=== PATIENT | female | born 2000 | race Caucasian/White ===

== ENCOUNTER 2021-02-25 10:22 | Inpatient (IN) ==
--- NOTE | 2021-02-25 10:54 | Emergency Department Note ---
Impression & Plan Suicidal ideations, Mood disorder, Marijuana use ED Provider Note NAME: ALEX GARY AGE: 20 SEX: F : 2000 ARRIVES VIA: Walk-In INFORMANT: Patient ED PROVIDER(S): Roosevelt Goss DO CHIEF COMPLAINT: Suicidal ideations with a plan to overdose or crash car HPI: Patient is a 20-year-old female who presents the ER for suicidal ideations. Been present for over a week. She has a plan to overdose or crash her car. She has been trying to get in with intensive outpatient therapy. She has a therapist and a psychiatrist. Been adjusting her medications. She is currently decreasing her Cymbalta and going up on her Prozac. Denies any headache or change in vision. No chest pain or shortness of breath. She admits to intrusive thoughts that she is worthless and needs to . No visual hallucinations. No other exacerbating or remitting factors. ROS: See above HPI for pertinent positives & negatives. A total of 10 systems reviewed and were otherwise negative. PAST MEDICAL HISTORY:See Below PAST SURGICAL HISTORY:See Below FAMILY HISTORY:See Below SOCIAL HISTORY:See Below HOME MEDICATIONS:See Below ALLERGIES:See Below VITALS:See Below PHYSICAL EXAMINATION: GENERAL: Sitting up in bed, alert, well appearing, well nourished, no distress, non-toxic EYE EXAM: normal conjunctiva. OROPHARYNX: no exudate, no erythema, lips, buccal mucosa, and tongue normal and mucous membranes are moist NECK: supple, no nuchal rigidity, no adenopathy, non-tender LUNGS: Clear to auscultation. Normal chest wall mechanics HEART: no murmurs, S1 normal and S2 normal ABDOMEN: abdomen soft, non-tender, normo-active bowel sounds, no masses, no rebound or guarding. UPPER EXTREMITIES: upper extremities are grossly normal. LOWER EXTREMITIES: No pitting edema. NEURO EXAM: Normal sensorium, cranial nerves II-XII grossly intact, normal speech, no gross weakness of arms, no gross weakness of legs. PSYCH: Admits to suicidal ideations with plan to overdose or crash car MEDICAL DECISION MAKING: Patient is a 20-year-old female who presents ER with plan to crash her car or overdose. She has no other complaints at this time.IV was established blood work obtained. Labs show no significant leukocytosis or anemia. BMP on LFTs bilirubin and TSH was unremarkable. UA was contaminated with multiple epithelial cells. was negative. Tox was positive for marijuana and ecstasy. Covid was negative. Patient was admitted to 3 [address]. for further work-up. Observation Status: Indication: Mood disorder/medical stability Patient with a family history of cancer, was seen first at 1040 hrs and was necessary in order to determine medical stability and avoid unnecessary admission. Upon reevaluation, 4 hours of observation revealed that the patient should be placed in a psychiatric unit. Disposition date and time 02/25/2021 at 2:35 PM. Triage Nursing notes reviewed. Limited review of prior medical records performed Vital Signs: reviewed and remarkable for tachy Differential diagnosis: Mood disorder, infection, hypoglycemia, electrolyte abnormalities, cardiac sources, intracerebral event, toxicologic, trauma, neurologic, as well as other pathologies. ER treatment provided: See below Diagnostics interpreted by me: ECG: none Laboratory studies: As stated above and show below. Imaging studies: See below Consultation(s): none Procedures: none Critical Care: None Past Med/Surg History Medical History (Updated 02/25/21 @ 14:28 by Roosevelt Goss DO) Anxiety no meds GERD (gastroesophageal reflux disease) Surgical History History of wisdom tooth extraction Family History Grandfather (Paternal) Family hx of colon cancer Grandfather (Maternal) Family history of esophageal cancer Other Colorectal cancer No family history of adverse response to anesthesia Social History Smoking Status: Never smoker Second Hand Exposure: No; Hx Alcohol Use: No Hx Substance Use: No Preferred Language: Upper Sorbian Communication Ability: Effective 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 Beliefs That Will Affect Care: None Current Living Situation: Alone Feels Safe at Home: Yes Assistive Devices: None Allergies Allergies Allergy/AdvReac Type Severity Reaction Status Date / Time gluten Allergy Abdominal Verified 02/25/21 12:07 Pain Home Meds Home Medications Medication Instructions Recorded Confirmed esomeprazole magnesium 40 mg 40 mg PO QAM PRN 05/14/20 02/25/21 capsule,delayed release fexofenadine [Kenna Allergy] 180 mg PO HS 05/31/20 02/25/21 norethindrone ac-eth estradiol 1 tab PO HS 05/31/20 02/25/21 [Junel .04/28 ()] duloxetine [Cymbalta] 30 mg PO DAILY 02/25/21 02/25/21 fluoxetine [Prozac] 10 mg PO DAILY 02/25/21 02/25/21 Results & Data (ED) Vital Signs Vital Signs - 24 hr 02/25/21 10:29 Temperature 36.6 C Temperature Source Temporal Artery Scan Pulse Rate 101 H Respiratory Rate 18 Respiratory Effort / Characteristics Non-Labored Respiratory Depth Normal Respiratory Pattern Regular Blood Pressure 126/88 Blood Pressure Mean 100 Blood Pressure Position Sitting Pulse Oximetry 96 Oxygen Delivery Method Room Air Sepsis Recent Fever Within 48 Hours No Sepsis New/Unexplained Change in Mental Status No Sepsis Action Taken by Nursing No Action Required Laboratory Data Result diagrams: 02/25/21 11:00 02/25/21 11:00 Lab Results 02/25/21 02/25/21 02/25/21 Range/Units 10:51 10:51 11:00 WBC 8.48 (4.8-10.8) K/uL RBC 4.73 (4.2-5.4) M/uL Hgb 13.7 (12.0-16.0) g/dL Hct 40.5 (37-47) % MCV 85.6 (80-100) fL MCH 29.0 (25-34) pg MCHC 33.8 (32-36) g/dL RDW Std Deviation 41.3 (36.4-46.3) fL RDW Coeff of Lorenza 13.1 (11.5-14.5) % Plt Count 391 (130-400) K/uL MPV 9.0 (7.4-10.4) fL Immature Gran % (Auto) 0.2 % Neut % (Auto) 64.2 % Lymph % (Auto) 27.7 % Villalba % (Auto) 6.4 % Eos % (Auto) 1.3 % Baso % (Auto) 0.2 % Neut # (Auto) 5.44 (1.4-6.5) K/uL Lymph # (Auto) 2.35 (1.2-3.4) K/uL Villalba # (Auto) 0.54 (0.11-0.59) K/uL Eos # (Auto) 0.11 (0-0.5) K/uL Baso # (Auto) 0.02 (0-0.2) K/uL Immature Gran # (Auto) 0.02 (0.00-0.02) K/uL Sodium (136-145) mmol/L Potassium (3.5-5.1) mmol/L Chloride (98-107) mmol/L Carbon Dioxide (21-32) mmol/L Anion Gap (3-11) BUN (7-18) mg/dl Creatinine (0.6-1.2) mg/dl Est Cr Clr Drug Dosing ml/min Est GFR ( Amer) Est GFR (Non-Af Amer) BUN/Creatinine Ratio (10-20) Glucose (70-99) mg/dl Calcium (8.5-10.1) mg/dl Total Bilirubin (0.2-1) mg/dl AST (15-37) U/L ALT (12-78) U/L Alkaline Phosphatase (45-117) U/L Total Protein (6.4-8.2) gm/dl Albumin (3.4-5.0) gm/dl Globulin (2.5-4.0) gm/dl Albumin/Globulin Ratio (0.9-2) TSH (0.300-4.500) uIu/ml Urine Color Yellow Urine Appearance Clear (Clear) Urine pH 6.0 (4.5-7.5) Ur Specific [place] 1.029 (1.000-1.030) Urine Protein Trace H (Negative) Urine Glucose (UA) Negative (Negative) Urine Ketones Negative (Negative) Urine Blood 2+ H (Negative) Urine Nitrite Negative (Negative) Urine Bilirubin Negative (Negative) Urine Urobilinogen Negative (Negative) Ur Leukocyte Esterase 1+ H (Negative) Urine WBC (Auto) 10-30 H (0-5) /hpf Urine RBC (Auto) 10-30 H (0-4) /hpf U Hyaline Cast (Auto) 5-10 H (0-5) /lpf U Epithel Cells (Auto) >30 H (0-5) /lpf Urine Bacteria (Auto) 2+ H (Negative) POC Ur Test (NEG) Salicylates (2.8-20) mg/dl Urine Opiates Screen Neg (Neg) Ur Methadone, Qual Neg (Neg) Acetaminophen (10-30) ug/ml Urine Barbiturates Neg (Neg) Ur Phencyclidine (PCP) Neg (Neg) U Amphetamin/Meth Scrn Neg (Neg) MDMA (Ecstasy) Screen Pos H (Neg) U Benzodiazepines Scrn Neg (Neg) Ur Cocaine Metabolite Neg (Neg) U Marijuana (THC) Screen Pos H (Neg) Ethyl Alcohol mg/dL (0-3) mg/dl COVID-19 Eval Order SARS-CoV-2 (PCR) (Negative) Influenza Type A (PCR) (Neg) Influenza Type B (PCR) (Neg) RSV (RT-PCR) (Neg) 02/25/21 02/25/21 02/25/21 Range/Units 11:00 11:00 11:00 WBC (4.8-10.8) K/uL RBC (4.2-5.4) M/uL Hgb (12.0-16.0) g/dL Hct (37-47) % MCV (80-100) fL MCH (25-34) pg MCHC (32-36) g/dL RDW Std Deviation (36.4-46.3) fL RDW Coeff of Lorenza (11.5-14.5) % Plt Count (130-400) K/uL MPV (7.4-10.4) fL Immature Gran % (Auto) % Neut % (Auto) % Lymph % (Auto) % Villalba % (Auto) % Eos % (Auto) % Baso % (Auto) % Neut # (Auto) (1.4-6.5) K/uL Lymph # (Auto) (1.2-3.4) K/uL Villalba # (Auto) (0.11-0.59) K/uL Eos # (Auto) (0-0.5) K/uL Baso # (Auto) (0-0.2) K/uL Immature Gran # (Auto) (0.00-0.02) K/uL Sodium 137 (136-145) mmol/L Potassium 3.6 (3.5-5.1) mmol/L Chloride 107 (98-107) mmol/L Carbon Dioxide 25 (21-32) mmol/L Anion Gap 5.0 (3-11) BUN 12 (7-18) mg/dl Creatinine 0.80 (0.6-1.2) mg/dl Est Cr Clr Drug Dosing 117.3 ml/min Est GFR ( Amer) 122.2 Est GFR (Non-Af Amer) 105.4 BUN/Creatinine Ratio 15.6 (10-20) Glucose 91 (70-99) mg/dl Calcium 8.6 (8.5-10.1) mg/dl Total Bilirubin 0.3 (0.2-1) mg/dl AST 15 (15-37) U/L ALT 23 (12-78) U/L Alkaline Phosphatase 71 (45-117) U/L Total Protein 7.6 (6.4-8.2) gm/dl Albumin 3.9 (3.4-5.0) gm/dl Globulin 3.7 (2.5-4.0) gm/dl Albumin/Globulin Ratio 1.1 (0.9-2) TSH 2.850 (0.300-4.500) uIu/ml Urine Color Urine Appearance (Clear) Urine pH (4.5-7.5) Ur Specific [place] (1.000-1.030) Urine Protein (Negative) Urine Glucose (UA) (Negative) Urine Ketones (Negative) Urine Blood (Negative) Urine Nitrite (Negative) Urine Bilirubin (Negative) Urine Urobilinogen (Negative) Ur Leukocyte Esterase (Negative) Urine WBC (Auto) (0-5) /hpf Urine RBC (Auto) (0-4) /hpf U Hyaline Cast (Auto) (0-5) /lpf U Epithel Cells (Auto) (0-5) /lpf Urine Bacteria (Auto) (Negative) POC Ur Test (NEG) Salicylates < 1.7 L (2.8-20) mg/dl Urine Opiates Screen (Neg) Ur Methadone, Qual (Neg) Acetaminophen < 2 L (10-30) ug/ml Urine Barbiturates (Neg) Ur Phencyclidine (PCP) (Neg) U Amphetamin/Meth Scrn (Neg) MDMA (Ecstasy) Screen (Neg) U Benzodiazepines Scrn (Neg) Ur Cocaine Metabolite (Neg) U Marijuana (THC) Screen (Neg) Ethyl Alcohol mg/dL < 3.0 (0-3) mg/dl COVID-19 Eval Order SARS-CoV-2 (PCR) (Negative) Influenza Type A (PCR) (Neg) Influenza Type B (PCR) (Neg) RSV (RT-PCR) (Neg) 02/25/21 02/25/21 02/25/21 Range/Units 11:14 11:14 Unknown WBC (4.8-10.8) K/uL RBC (4.2-5.4) M/uL Hgb (12.0-16.0) g/dL Hct (37-47) % MCV (80-100) fL MCH (25-34) pg MCHC (32-36) g/dL RDW Std Deviation (36.4-46.3) fL RDW Coeff of Lorenza (11.5-14.5) % Plt Count (130-400) K/uL MPV (7.4-10.4) fL Immature Gran % (Auto) % Neut % (Auto) % Lymph % (Auto) % Villalba % (Auto) % Eos % (Auto) % Baso % (Auto) % Neut # (Auto) (1.4-6.5) K/uL Lymph # (Auto) (1.2-3.4) K/uL Villalba # (Auto) (0.11-0.59) K/uL Eos # (Auto) (0-0.5) K/uL Baso # (Auto) (0-0.2) K/uL Immature Gran # (Auto) (0.00-0.02) K/uL Sodium (136-145) mmol/L Potassium (3.5-5.1) mmol/L Chloride (98-107) mmol/L Carbon Dioxide (21-32) mmol/L Anion Gap (3-11) BUN (7-18) mg/dl Creatinine (0.6-1.2) mg/dl Est Cr Clr Drug Dosing ml/min Est GFR ( Amer) Est GFR (Non-Af Amer) BUN/Creatinine Ratio (10-20) Glucose (70-99) mg/dl Calcium (8.5-10.1) mg/dl Total Bilirubin (0.2-1) mg/dl AST (15-37) U/L ALT (12-78) U/L Alkaline Phosphatase (45-117) U/L Total Protein (6.4-8.2) gm/dl Albumin (3.4-5.0) gm/dl Globulin (2.5-4.0) gm/dl Albumin/Globulin Ratio (0.9-2) TSH (0.300-4.500) uIu/ml Urine Color Urine Appearance (Clear) Urine pH (4.5-7.5) Ur Specific [place] (1.000-1.030) Urine Protein (Negative) Urine Glucose (UA) (Negative) Urine Ketones (Negative) Urine Blood (Negative) Urine Nitrite (Negative) Urine Bilirubin (Negative) Urine Urobilinogen (Negative) Ur Leukocyte Esterase (Negative) Urine WBC (Auto) (0-5) /hpf Urine RBC (Auto) (0-4) /hpf U Hyaline Cast (Auto) (0-5) /lpf U Epithel Cells (Auto) (0-5) /lpf Urine Bacteria (Auto) (Negative) POC Ur Test NEG (NEG) Salicylates (2.8-20) mg/dl Urine Opiates Screen (Neg) Ur Methadone, Qual (Neg) Acetaminophen (10-30) ug/ml Urine Barbiturates (Neg) Ur Phencyclidine (PCP) (Neg) U Amphetamin/Meth Scrn (Neg) MDMA (Ecstasy) Screen (Neg) U Benzodiazepines Scrn (Neg) Ur Cocaine Metabolite (Neg) U Marijuana (THC) Screen (Neg) Ethyl Alcohol mg/dL (0-3) mg/dl COVID-19 Eval Order CovFluRsv at [facility] SARS-CoV-2 (PCR) NEGATIVE (Negative) Influenza Type A (PCR) Negative (Neg) Influenza Type B (PCR) Negative (Neg) RSV (RT-PCR) Negative (Neg) Discharge Plan Visit Data Chief Complaint: Mental Health Evaluation Stated Complaint: MENTAL HEALTH EVAL ED Provider: Roosevelt Goss Discharge Problem: Suicidal ideations, Mood disorder, Marijuana use Forms Stand Alone Forms: My [facility], Suicide Prevention Resources Prescriptions Prescriptions: No Action esomeprazole magnesium [Nexium] 40 mg capsule,delayed release(DR/EC) 40 mg PO QAM PRN (Reason: Allergy Symptoms) RF: 0 norethindrone ac-eth estradiol [ (21)] 1.5-30 mg-mcg Tablet 1 tab PO HS RF: 0 fexofenadine [Kenna Allergy] 180 mg Tablet 180 mg PO HS RF: 0 fluoxetine [Prozac] 10 mg Capsule 10 mg PO DAILY RF: 0 duloxetine [Cymbalta] 30 mg Capsule,Delayed Release(Dr/Ec) 30 mg PO DAILY RF: 0
[2021-02-25 11:08] LABS: Appearance Urine Clear (Clear); Bacteria Urine Automated 2+ (Negative); Bilirubin Urine Negative (Negative); Blood Urine 2+ (Negative); Color Urine Yellow; Epithelial Cell Urine Auto >30 /lpf (0-5); Glucose Urine UA Negative (Negative); Ketones Urine Negative (Negative); Leukocyte Esterase Urine 1+ (Negative); Nitrite Urine Negative (Negative); Protein Urine Trace (Negative); Specific Gravity Urine 1.029 (1.000-1.030); Urobilinogen Urine Negative (Negative)
[2021-02-25 11:29] LABS: Basophils # (auto) 0.02 K/uL (0-0.2); Basophils % (auto) 0.2 %; Eosinophils # (auto) 0.11 K/uL (0-0.5); Eosinophils % (auto) 1.3 %; Hematocrit (blood only) 40.5 % (37-47); Hemoglobin 13.7 g/dL (12.0-16.0); Immature Granulocytes # (auto) 0.02 K/uL (0.00-0.02); Immature Granulocytes % (auto) 0.2 %; Lymphocytes # (auto) 2.35 K/uL (1.2-3.4); Lymphocytes % (auto) 27.7 %; Mean Corpuscular Hgb Conc 33.8 g/dL (32-36); Mean Corpuscular Volume 85.6 fL (80-100); Monocytes # (auto) 0.54 K/uL (0.11-0.59); Monocytes % (auto) 6.4 %; Neutrophils # (auto) 5.44 K/uL (1.4-6.5); Neutrophils % (auto) 64.2 %; Platelet Count 391 K/uL (130-400); RDW Coefficient of Variation 13.1 % (11.5-14.5); RDW Standard Deviation 41.3 fL (36.4-46.3); Red Blood Count 4.73 M/uL (4.2-5.4); White Blood Count 8.48 K/uL (4.8-10.8)
[2021-02-25 11:42] LABS: Amphetamines+Metham, Urine Neg (Neg); Barbiturates, Urine Neg (Neg); Benzodiazepine, Urine Neg (Neg); Cocaine, Urine Neg (Neg); MDMA (Ecstacy), Urine Pos (Neg); Methadone, Urine Neg (Neg); Opiate, Urine Neg (Neg); Phencyclidine, Urine Neg (Neg)
[2021-02-25 11:51] LABS: Albumin Level 3.9 gm/dl (3.4-5.0); BUN Creatinine Ratio 15.6 (10-20); Calcium 8.6 mg/dl (8.5-10.1); Creatinine Clr Calc Pharmacy 117.3 ml/min; Est GFR (African American) 122.2; Est GFR (Non-African American) 105.4; Potassium 3.6 mmol/L (3.5-5.1)
[2021-02-25 11:56] LABS: Acetaminophen < 2 ug/ml (10-30)
[2021-02-25 11:57] LABS: Salicylate < 1.7 mg/dl (2.8-20)
[2021-02-25 12:07] LABS: Albumin Globulin Ratio 1.1 (0.9-2); Bilirubin,Total 0.3 mg/dl (0.2-1); Globulin 3.7 gm/dl (2.5-4.0); Thyroid Stimulating Hormone 2.85 uIu/ml (0.300-4.500); Total Protein 7.6 gm/dl (6.4-8.2)
[2021-02-25 12:20] LABS: Influenza A virus by PCR Negative (Neg); Influenza B virus by PCR Negative (Neg); RSV by PCR Negative (Neg); SARS CoV2 RNA(COVID-19) InHosp NEGATIVE (Negative)
[2021-02-25] MEDS ORDERED: MAGNESIUM HYDROXIDE SUSP 30 ML UDC PO PRN (14:09)
[2021-02-25] MEDS ORDERED: SODIUM CHLORIDE 0.65% NA SOLN 45 ML (OCEAN) PRN (14:09)
[2021-02-25] MEDS ORDERED: BISMUTH SUBSALICYLATE LIQD 236 ML PO PRN (14:09)
[2021-02-25] MEDS ORDERED: ACETAMINOPHEN 325 MG TAB PO PRN (14:09)
[2021-02-25] MEDS ORDERED: hydrOXYzine HCl 25 MG TAB PO PRN ×2 (14:09)
[2021-02-25] MEDS ORDERED: ALUMINUM/MAGNESIUM SUSP 30 ML UDC PO PRN (14:09)
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
[2021-02-25] MEDS: FEXOFENADINE HCL 180 MG TAB PO SCH (21:32)
[2021-02-25] MEDS: JUNEL FE SCH (21:33)
--- NOTE | 2021-02-26 08:37 | Psychiatric Progress Note ---
Date of Service February 26, 2021 Impression / Recommendations Impression 20-year-old female admitted voluntarily for inpatient psychiatric treatment on 02/25/21 after presenting to the ED with worsening depression and SI with plans to either overdose or wreck her car. We are continuing cross-titration from duloxetine to fluoxetine, while addressing family relationships and coping strategies. Inpatient treatment remains medically necessary due to severity of symptoms and risk for suicide if discharged. (1) Suicidal ideations: 02/25 - Admitted to a locked inpatient behavioral health unit, on q15 minute safety checks - Encourage medication initiation/adjustments as indicated - Encourage participation in group and recreational therapies - Gather collateral information from outpatient providers - Suggest family meeting to involve outpatient supports in safety planning - Arrange appropriate aftercare 02/26 - Able to contract for safety on the unit, but not outside the hospital. (2) Depression: 02/25 - Continue cross-titration from duloxetine to fluoxetine. Next step was for 20mg of duloxetine and 20mg of fluoxetine to start 02/27. Pt is agreeable with making that change tomorrow morning, reviewed ability to progress more rapidly through this taper if desired now that she is supervised in the inpatient setting. - Gather collateral information and coordinate with outpatient psychiatric providers - Encourage participation in group and recreational programming - Assist with development of healthy and effective coping strategies - Schedule support meeting with parents/roommate to discuss discharge and safety planning - Assist with completion of a written safety plan 02/26 - continue cross taper, process stressors. (3) Obsessive-compulsive and related disorder: 02/25 - Historical diagnosis of OCD from outpatient providers related to obsessive symptoms checking (COVID-19, , etc) as well as intrusive vivid thoughts of completing suicide. - Cross-titration from duloxetine to fluoxetine as outlined above - Assist with education on diagnosis as well as development of healthy and effective coping strategies. (4) Celiac disease: 02/25 - Gluten free diet - Dietary consultation if desired - Diagnosed Summer 2019, not primary focus of treatment (5) Abnormal urinalysis: 02/25 - UA significant for trace protein, 2+ blood, 1+ leukocyte esterase, 2+ bacteria, 10-30 RBC and WBC, 5-10 hyaline casts, and >30 epithelial cells. - Pt denies symptoms of UTI - urine sent for culture. 02/26 -final culture results indicate contaminated sample (more than 3 types of organisms present, all moderate counts mixed probable skin alex). Inventory Assets Strengths: willingness for treatment, intelligent, decent insight into psychiatric conditions Needs: resolution of suicidal thinking, medication adjustments to target depression, development of healthy and effective coping skills Risk Factors Assessment Male: No : Yes Do You Have Access To A Gun?: No (recently got a handgun, kept it at parent's house to limit risk of selfharm) Health Problems: Yes Mental Health Diagnoses: Yes Substance Use Disorders: No Previous Attempt: No Family History of Suicide: No Previous Psychiatric Hospitalization: No Hopelessness: Yes Smoker: No Protective Factors Assessment Mu-Ism Beliefs: No : No Responsible for Young Children: No Employed: No Stable Relationships: Yes Supportive Family: Yes Good Rapport with Provider: Yes Interval History Identifying Information ALEX GARY is a 20-year-old F [employer] who currently lives in [place] with her roommate, has a history of depression, and was admitted on 02/25/21 at 14:40 on a 201 voluntary commitment for suicidal ideation with plan to overdose or wreck her car. Chief Complaint "As well as they can". Review of Systems Sleep Information Total Hours of Sleep: 7.75 Sleep Comments: pt on q-15 minute checks Meal Information Percent Meal Consumed - Dinner: 100 Subjective Subjective Patient was seen & assessed and interval progress reviewed with nursing and social work. Patient reports mood is no better than on admission, describes it as "like oh my God, exasperated," as she feels frustrated with her family, and is having difficulty adjusting to the unit as "I'm a go go go person." Her main goal is to focus on "a will to live." She is frustrated as her family wanted to come to [employer] [facility], even though she told them they can't visit her in the hospital. She feels their reaction is making her more anxious, and that she is inconveniencing them and feels guilty about that. She "realized my relationship with my mom wasn't what I thought it was, and that put a lot of weight on me...I'd been more of a parent to her than I thought I was." She continues to have intrusive negative thoughts, and is unable to contract for safety outside of the hospital, but does feel safe here. She states she is very nervous about the medication change, as in the past she has had worsening symptoms and suicidal thoughts when changing medications. She has multiple appropriate questions about treatment. Physical Exam Psychiatric Orientation: alert and cooperative Apperance: appropriately dressed, appropriately groomed and appeared stated age Seated in NAD. Bouncing leg up and down throughout interview. Eye Contact: + fair eye contact Motor Behavior: steady gait and station and + psychomotor agitation Speech: normal rate/rhythm/volume of speech Affect: + depressed affect, + anxious affect and mood congruent with affect Mood: + depressed mood and + anxious mood Thought Process: goal directed thought process and linear/logical thought process Thought Content: + cognitive distortions, + hopelessness and + guilt Suicidal Thoughts: + reports suicidal thoughts Homicidal Thoughts: denies homicidal thoughts Hallucinations: no auditory hallucinations and no visual hallucinations Cognition: recent memory grossly intact, attention grossly intact and language grossly intact Estimated Intelligence: consistent with education level Insight: good insight Judgement: good judgement Vital Signs (Past 24 Hours) Last Vital Signs Temp 36.9 C 02/26/21 06:41 Pulse 79 02/26/21 06:43 Resp 16 02/26/21 06:41 BP 124/81 02/26/21 06:43 Pulse Ox 97 02/25/21 15:23 Results & Data ([facility]) Laboratory Results Laboratory Results - last 24 hr 02/25/21 02/25/21 02/25/21 10:51 10:51 10:51 WBC RBC Hgb Hct MCV MCH MCHC RDW Std Deviation RDW Coeff of Lorenza Plt Count MPV Immature Gran % (Auto) Neut % (Auto) Lymph % (Auto) [place] % (Auto) Eos % (Auto) Baso % (Auto) Neut # (Auto) Lymph # (Auto) [place] # (Auto) Eos # (Auto) Baso # (Auto) Immature Gran # (Auto) Sodium Potassium Chloride Carbon Dioxide Anion Gap BUN Creatinine Est Cr Clr Drug Dosing Est GFR ( Amer) Est GFR (Non-Af Amer) BUN/Creatinine Ratio Glucose Calcium Total Bilirubin AST ALT Alkaline Phosphatase Total Protein Albumin Globulin Albumin/Globulin Ratio TSH Urine Color Yellow Urine Appearance Clear Urine pH 6.0 Ur Specific [place] 1.029 Urine Protein Trace H Urine Glucose (UA) Negative Urine Ketones Negative Urine Blood 2+ H Urine Nitrite Negative Urine Bilirubin Negative Urine Urobilinogen Negative Ur Leukocyte Esterase 1+ H Urine WBC (Auto) 10-30 H Urine RBC (Auto) 10-30 H U Hyaline Cast (Auto) 5-10 H U Epithel Cells (Auto) >30 H Urine Bacteria (Auto) 2+ H POC Ur Test Salicylates Urine Opiates Screen Neg Ur Methadone, Qual Neg Acetaminophen Urine Barbiturates Neg Ur Phencyclidine (PCP) Neg U Amphetamin/Meth Scrn Neg Urine MDEA Pending MDMA (Ecstasy) Screen Pos H MDMA Pending Urine MDMA Pending U Benzodiazepines Scrn Neg Ur Cocaine Metabolite Neg U Marijuana (THC) Screen Pos H U Marijuana THC Carboxy Pending Drug Screen Comment Pending Ethyl Alcohol mg/dL COVID-19 Eval Order SARS-CoV-2 (PCR) Influenza Type A (PCR) Influenza Type B (PCR) RSV (RT-PCR) 02/25/21 02/25/21 02/25/21 11:00 11:00 11:00 WBC 8.48 RBC 4.73 Hgb 13.7 Hct 40.5 MCV 85.6 MCH 29.0 MCHC 33.8 RDW Std Deviation 41.3 RDW Coeff of Lorenza 13.1 Plt Count 391 MPV 9.0 Immature Gran % (Auto) 0.2 Neut % (Auto) 64.2 Lymph % (Auto) 27.7 [place] % (Auto) 6.4 Eos % (Auto) 1.3 Baso % (Auto) 0.2 Neut # (Auto) 5.44 Lymph # (Auto) 2.35 [place] # (Auto) 0.54 Eos # (Auto) 0.11 Baso # (Auto) 0.02 Immature Gran # (Auto) 0.02 Sodium 137 Potassium 3.6 Chloride 107 Carbon Dioxide 25 Anion Gap 5.0 BUN 12 Creatinine 0.80 Est Cr Clr Drug Dosing 117.3 Est GFR ( Amer) 122.2 Est GFR (Non-Af Amer) 105.4 BUN/Creatinine Ratio 15.6 Glucose 91 Calcium 8.6 Total Bilirubin 0.3 AST 15 ALT 23 Alkaline Phosphatase 71 Total Protein 7.6 Albumin 3.9 Globulin 3.7 Albumin/Globulin Ratio 1.1 TSH 2.850 Urine Color Urine Appearance Urine pH Ur Specific [place] Urine Protein Urine Glucose (UA) Urine Ketones Urine Blood Urine Nitrite Urine Bilirubin Urine Urobilinogen Ur Leukocyte Esterase Urine WBC (Auto) Urine RBC (Auto) U Hyaline Cast (Auto) U Epithel Cells (Auto) Urine Bacteria (Auto) POC Ur Test Salicylates < 1.7 L Urine Opiates Screen Ur Methadone, Qual Acetaminophen < 2 L Urine Barbiturates Ur Phencyclidine (PCP) U Amphetamin/Meth Scrn Urine MDEA MDMA (Ecstasy) Screen MDMA Urine MDMA U Benzodiazepines Scrn Ur Cocaine Metabolite U Marijuana (THC) Screen U Marijuana THC Carboxy Drug Screen Comment Ethyl Alcohol mg/dL COVID-19 Eval Order SARS-CoV-2 (PCR) Influenza Type A (PCR) Influenza Type B (PCR) RSV (RT-PCR) 02/25/21 02/25/21 02/25/21 11:00 11:14 11:14 WBC RBC Hgb Hct MCV MCH MCHC RDW Std Deviation RDW Coeff of Lorenza Plt Count MPV Immature Gran % (Auto) Neut % (Auto) Lymph % (Auto) [place] % (Auto) Eos % (Auto) Baso % (Auto) Neut # (Auto) Lymph # (Auto) [place] # (Auto) Eos # (Auto) Baso # (Auto) Immature Gran # (Auto) Sodium Potassium Chloride Carbon Dioxide Anion Gap BUN Creatinine Est Cr Clr Drug Dosing Est GFR ( Amer) Est GFR (Non-Af Amer) BUN/Creatinine Ratio Glucose Calcium Total Bilirubin AST ALT Alkaline Phosphatase Total Protein Albumin Globulin Albumin/Globulin Ratio TSH Urine Color Urine Appearance Urine pH Ur Specific [place] Urine Protein Urine Glucose (UA) Urine Ketones Urine Blood Urine Nitrite Urine Bilirubin Urine Urobilinogen Ur Leukocyte Esterase Urine WBC (Auto) Urine RBC (Auto) U Hyaline Cast (Auto) U Epithel Cells (Auto) Urine Bacteria (Auto) POC Ur Test Salicylates Urine Opiates Screen Ur Methadone, Qual Acetaminophen Urine Barbiturates Ur Phencyclidine (PCP) U Amphetamin/Meth Scrn Urine MDEA MDMA (Ecstasy) Screen MDMA Urine MDMA U Benzodiazepines Scrn Ur Cocaine Metabolite U Marijuana (THC) Screen U Marijuana THC Carboxy Drug Screen Comment Ethyl Alcohol mg/dL < 3.0 COVID-19 Eval Order CovFluRsv at [facility] SARS-CoV-2 (PCR) NEGATIVE Influenza Type A (PCR) Negative Influenza Type B (PCR) Negative RSV (RT-PCR) Negative 02/25/21 Unknown WBC RBC Hgb Hct MCV MCH MCHC RDW Std Deviation RDW Coeff of Lorenza Plt Count MPV Immature Gran % (Auto) Neut % (Auto) Lymph % (Auto) [place] % (Auto) Eos % (Auto) Baso % (Auto) Neut # (Auto) Lymph # (Auto) [place] # (Auto) Eos # (Auto) Baso # (Auto) Immature Gran # (Auto) Sodium Potassium Chloride Carbon Dioxide Anion Gap BUN Creatinine Est Cr Clr Drug Dosing Est GFR ( Amer) Est GFR (Non-Af Amer) BUN/Creatinine Ratio Glucose Calcium Total Bilirubin AST ALT Alkaline Phosphatase Total Protein Albumin Globulin Albumin/Globulin Ratio TSH Urine Color Urine Appearance Urine pH Ur Specific [place] Urine Protein Urine Glucose (UA) Urine Ketones Urine Blood Urine Nitrite Urine Bilirubin Urine Urobilinogen Ur Leukocyte Esterase Urine WBC (Auto) Urine RBC (Auto) U Hyaline Cast (Auto) U Epithel Cells (Auto) Urine Bacteria (Auto) POC Ur Test NEG Salicylates Urine Opiates Screen Ur Methadone, Qual Acetaminophen Urine Barbiturates Ur Phencyclidine (PCP) U Amphetamin/Meth Scrn Urine MDEA MDMA (Ecstasy) Screen MDMA Urine MDMA U Benzodiazepines Scrn Ur Cocaine Metabolite U Marijuana (THC) Screen U Marijuana THC Carboxy Drug Screen Comment Ethyl Alcohol mg/dL COVID-19 Eval Order SARS-CoV-2 (PCR) Influenza Type A (PCR) Influenza Type B (PCR) RSV (RT-PCR) Current Inpatient Medications Current Inpatient Medications: Current Inpatient Medications Acetaminophen (Acetaminophen 325 Mg Tab) 650 mg PO Q4H PRN PRN Reason: Headache or Minor Fever Stop: 03/27/21 14:08 Al Hydrox/Mg Hydrox/Simethicone (Aluminum/Magnesium Susp 30 Ml Udc) 30 ml PO Q4H PRN PRN Reason: GI Upset Stop: 03/27/21 14:08 Bismuth Subsalicylate (Bismuth Subsalicylate Liqd 236 Ml) 15 ml PO PRN PRN PRN Reason: Loose Stool Stop: 03/27/21 14:08 Duloxetine HCl (Duloxetine Hcl 20 Mg Cap) 20 mg PO DAILY CAROLANN Stop: 03/28/21 08:59 Fexofenadine HCl (Fexofenadine Hcl 180 Mg Tab) 180 mg PO HS CAROLANN Stop: 03/27/21 21:59 Last Admin: 02/25/21 21:32 Dose: 180 mg Documented by: Fluoxetine HCl (Fluoxetine Hcl 20 Mg Cap) 20 mg PO DAILY CAROLANN Stop: 03/28/21 08:59 Hydroxyzine HCl (Hydroxyzine Hcl 25 Mg Tab) 50 mg PO HSZ PRN PRN Reason: Insomnia Stop: 03/27/21 14:08 Hydroxyzine HCl (Hydroxyzine Hcl 25 Mg Tab) 25 mg PO Q4H PRN PRN Reason: Anxiety Stop: 03/27/21 14:08 Magnesium Hydroxide (Magnesium Hydroxide Susp 30 Ml Udc) 30 ml PO DAILY PRN PRN Reason: Constipation Stop: 03/27/21 14:08 Non- Formulary Patient's Own Med 1 ea N/A HS CAROLANN; Protocol Stop: 03/27/21 21:59 Last Admin: 02/25/21 21:33 Dose: 1 tab Documented by: Sodium Chloride (Sodium Chloride 0.65% Na Soln 45 Ml ([place])) 1 - 2 sprays NA PRN PRN PRN Reason: Nasal Dryness/Congestion Stop: 03/27/21 14:08 Mental Health & Subst Abuse Tx Therapist Name of Therapist: [facility] @[facility] Post Discharge Appointments Primary Care Physician Name Of Family Doctor: none (1) Depression Active/Remission status: currently active Depression Type: major depressive disorder Major depression episode severity: severe Major depression recurrence: recurrent Psychotic features: without psychotic features Qualified Code(s): F33.2 - Major depressive disorder, recurrent severe without psychotic features
[2021-02-26] MEDS: DULoxetine HCL 20 MG CAP PO SCH (09:30)
[2021-02-26] MEDS: FLUoxetine HCL 20 MG CAP PO SCH (09:30)
[2021-02-26] MEDS: [UNRECOGNIZED DRUG - OTHER] SCH (21:36)
[2021-02-26] MEDS: JUNEL FE SCH (21:37)
[2021-02-26] MEDS: FEXOFENADINE HCL 180 MG TAB PO SCH (21:49)
[2021-02-27] MEDS: FLUoxetine HCL 20 MG CAP PO SCH (08:50)
[2021-02-27] MEDS: DULoxetine HCL 20 MG CAP PO SCH (08:50)
--- NOTE | 2021-02-27 09:04 | Communication Note ---
Date of Service: February 27, 2021 Outpatient Psychiatric Records Received from Dr. Luz Marina Hughes MD - [facility] Diagnoses: - Major depressive disorder - Mixed obsessional thoughts and acts, r/o OCD ("generally about illness or ego-dystonic concerns about hurting herself or others") - Anxiety Medications: - Cross-taper schedule from duloxetine 30mg to fluoxetine 40mg over 4 weeks. Initial Evaluation: 09/19/20 - Depressive symptoms beginning 1.5 months prior to encounter, 1 week after starting co-op. Pt believed she ate gluten at coworker [employer] and became ill, leading to fatigue and depression. Past episodes of depression. High anxiety about getting despite safe sex practices, checklist of symptoms she reviewed each day related to COVID-19 and . - Pt started on escitalopram for depression and anxiety - low dose with gradual titration due to concern for GI symptoms. See scanned in documentation for additional information from visits 10/10/20 - 11/14/20. 12/11/20 - Reported liking duloxetine better than other medications, but 3.5 week ephraim was "rough, just like the other medicines." Results from YBOCS survey were reviewed - ongoing ego-dystonic SI at times. - Duloxetine increased to 60mg 01/08/21 - Worsening insomnia and anxiety. Recent break-up with boyfriend due to "violating boundaries related to COVID." - Duloxetine titrated to 90mg. 01/30/21 - Duloxetine felt less effective at 90mg. Recently processed break-up with therapist but reported "no unresolved feelings". Intrusive thoughts about suicide, COVID, and decreased to 1 hour per day from 3 hours per day last week. Denied SI. Pt asked about marijuana, which was not recommended. - Duloxetine tapered to 60mg daily 02/19/21 - Depression and "a suicidal feeling in general" since decreasing duloxetine. Pt gave keys and medications to roommate. IOP intake completed 02/15 with recommendation for "general IOP track." Pt denied SI but agreed to safety planning steps in event of worsening SI. - Cross-taper from duloxetine to fluoxetine discussed - IOP referral. Consideration for augmentation was SGA if no improvement.
--- NOTE | 2021-02-27 09:20 | Psychiatric Progress Note ---
Date of Service February 27, 2021 Impression / Recommendations Impression 20-year-old female admitted voluntarily for inpatient psychiatric treatment on 02/25/21 after presenting to the ED with worsening depression and SI with plans to either overdose or wreck her car. We are continuing cross-titration from duloxetine to fluoxetine, while addressing family relationships and coping strategies. Inpatient treatment remains medically necessary due to severity of symptoms and risk for suicide if discharged. (1) Suicidal ideations: 02/25 - Admitted to a locked inpatient behavioral health unit, on q15 minute safety checks - Encourage medication initiation/adjustments as indicated - Encourage participation in group and recreational therapies - Gather collateral information from outpatient providers - Suggest family meeting to involve outpatient supports in safety planning - Arrange appropriate aftercare 02/26 - Able to contract for safety on the unit, but not outside the hospital. 02/27 - Same as above, ongoing SI - both hopelessness and suicidality related to depression as well as intrusive SI that seems more ego dystonic in nature - Overwhelming conversation with father this morning which led to significant worsening of mood and onset of SI - Still able to contract for safety on the unit, encourage processing with staff. (2) Depression: 02/25 - Continue cross-titration from duloxetine to fluoxetine. Next step was for 20mg of duloxetine and 20mg of fluoxetine to start 02/27. Pt is agreeable with making that change tomorrow morning, reviewed ability to progress more rapidly through this taper if desired now that she is supervised in the inpatient setting. - Gather collateral information and coordinate with outpatient psychiatric providers - Encourage participation in group and recreational programming - Assist with development of healthy and effective coping strategies - Schedule support meeting with parents/roommate to discuss discharge and safety planning - Assist with completion of a written safety plan 02/26 - continue cross taper, process stressors. 02/27 - Starting next step of cross-taper tomorrow morning - discontinuing duloxetine and titrating fluoxetine to 30mg qAM. Pt admits to history of worsening depression and SI with medication adjustments in the past, therefore ongoing inpatient treatment is necessary to ensure safety at this time - Pt admits to significant worsening of mood today after a difficult call with her father - Support meeting this afternoon with friends - Pt reporting ongoing SI, inability to contract for safety outside of hospital setting (3) Obsessive-compulsive and related disorder: 02/25 - Historical diagnosis of OCD from outpatient providers related to obsessive symptoms checking (COVID-19, , etc) as well as intrusive vivid thoughts of completing suicide. - Cross-titration from duloxetine to fluoxetine as outlined above - Assist with education on diagnosis as well as development of healthy and effective coping strategies. 02/27 - Additional information received and reviewed regarding obsessive thinking, which seemed more prominent than compulsive behaviors - Pt does admit that some of the suicidal thinking is ego dystonic in nature, intrusive thoughts of negative self-worth and causing harm to herself even when mood is good. - Continue to monitor (4) Celiac disease: 02/25 - Gluten free diet - Dietary consultation if desired - Diagnosed Summer 2019, not primary focus of treatment (5) Abnormal urinalysis: 02/25 - UA significant for trace protein, 2+ blood, 1+ leukocyte esterase, 2+ bacteria, 10-30 RBC and WBC, 5-10 hyaline casts, and >30 epithelial cells. - Pt denies symptoms of UTI - urine sent for culture. 02/26 -final culture results indicate contaminated sample (more than 3 types of organisms present, all moderate counts mixed probable skin alex). Inventory Assets Strengths: willingness for treatment, intelligent, decent insight into psychiatric conditions Needs: resolution of suicidal thinking, medication adjustments to target depression, development of healthy and effective coping skills Risk Factors Assessment Male: No : Yes Do You Have Access To A Gun?: No (recently got a handgun, kept it at parent's house to limit risk of selfharm) Health Problems: Yes Mental Health Diagnoses: Yes Substance Use Disorders: No Previous Attempt: No Family History of Suicide: No Previous Psychiatric Hospitalization: No Hopelessness: Yes Smoker: No Protective Factors Assessment Quaker Beliefs: No : No Responsible for Young Children: No Employed: No Stable Relationships: Yes Supportive Family: Yes Good Rapport with Provider: Yes Interval History Identifying Information ALEX GARY is a 20-year-old F [employer] who currently lives in [place] with her roommate, has a history of depression, and was admitted on 02/25/21 at 14:40 on a 201 voluntary commitment for suicidal ideation with plan to overdose or wreck her car. Chief Complaint "Um, yesterday went well...today? Less...well..." Review of Systems Notes Constitutional: reports poor sleep last evening, waking up frequently Cardiovascular: denied Respiratory: denied Gastrointestinal: denied Neurological: denied Psychiatric: denies symptoms other than stated above Total of at least 10 systems reviewed, pertinent positives as above and in HPI. Sleep Information Total Hours of Sleep: 7.25 Sleep Comments: pt on q-15 minute checks Meal Information Percent Meal Consumed - Breakfast: 90 Percent Meal Consumed - Lunch: 90 Percent Meal Consumed - Dinner: 100 Subjective Subjective Patient was seen & assessed and interval progress reviewed with treatment team. Staff report the patient has been participating in group programming. She had reported ongoing SI yesterday and did admit to some obsessive traits. Pt rated her mood a 5/10 and "anxious and hopeful" last evening. She has a support meeting scheduled later today with friends. This provider did meet with the patient to assess progress since admission, shortly after an upsetting phone call with the patient's father. Phone call initially processed with social media marketing specialist; however, patient still appears tearful and anxious. Pt admits that yesterday "went well" but when asked how her morning is going, she states "less...well..." and becomes tearful. Pt states "I was supposed to do a family call tonight at six, but I knew the family call was just a ruse for me to talk to my dad. So I decided to call him this morning so that way I would have support from the team." Pt states that initially the conversation went well; however, patient was conflicted by the 'support' she received as she discussed the reason for her hospital admission in greater detail. From the patient's explanation, it seemed that her father was simultaneously speaking poorly of people who struggle with mental health issues, while also normalizing depression and sharing about his experience with suicidal thoughts from 10 years ago. Pt states that she was overwhelmed by the conversation, especially when she was told by her father that he had never shared with anyone that he had been suicidal. Pt perceived this information as another burden that she was expected to carry. Pt states "especially since most of my baggage is stuff related to my family and burdens I have to hang on to." Pt states she was intrigued by her conversation with our social media marketing specialist about the idea that she can choose to not 'carry' these burdens and is hoping for staff support to continue to process this idea. Pt states that prior to her phone call, her mood was improved this morning - but sleep last evening was poor. Pt admits she is now significantly more depressed and suicidal ideation has recurred. She is agreeable with continuing cross-taper to fluoxetine, but admits "I'm really scared, but I want to do this while I'm here." Pt denied other needs or concerns today. Physical Exam Psychiatric Orientation: alert, oriented x 3 and cooperative Apperance: appropriately dressed, appropriately groomed and appeared stated age Eye Contact: + fair eye contact Motor Behavior: steady gait and station and + psychomotor agitation (appearing restless, bouncing knee repeatedly) pt did display some repetitive movements while conversing, for example - alternating pronation and supination of her arms with closed fists. Speech: normal rate/rhythm/volume of speech Affect: + depressed affect and + anxious affect nervously smiling/laughing throughout conversation Mood: + depressed mood and + anxious mood Thought Process: goal directed thought process and clear/coherent thought process Thought Content: reality based without delusions, + hopelessness, + guilt and + self deprecation Suicidal Thoughts: denies suicidal intent (able to contract for safety on our unit); + reports suicidal thoughts Homicidal Thoughts: denies homicidal thoughts Hallucinations: no auditory hallucinations and no visual hallucinations Cognition: recent memory grossly intact, attention grossly intact and language grossly intact Estimated Intelligence: consistent with education level Insight: + fair insight Judgement: + fair judgement Vital Signs (Past 24 Hours) Last Vital Signs Temp 36.8 C 02/27/21 06:40 Pulse 83 02/27/21 06:40 Resp 16 02/27/21 06:40 BP 119/73 02/27/21 06:40 Pulse Ox 97 02/25/21 15:23 Results & Data ([facility] [place]) Current Inpatient Medications Current Inpatient Medications: Current Inpatient Medications Acetaminophen (Acetaminophen 325 Mg Tab) 650 mg PO Q4H PRN PRN Reason: Headache or Minor Fever Stop: 03/27/21 14:08 Al Hydrox/Mg Hydrox/Simethicone (Aluminum/Magnesium Susp 30 Ml Udc) 30 ml PO Q4H PRN PRN Reason: GI Upset Stop: 03/27/21 14:08 Bismuth Subsalicylate (Bismuth Subsalicylate Liqd 236 Ml) 15 ml PO PRN PRN PRN Reason: Loose Stool Stop: 03/27/21 14:08 Duloxetine HCl (Duloxetine Hcl 20 Mg Cap) 20 mg PO DAILY CAROLANN Stop: 03/28/21 08:59 Last Admin: 02/27/21 08:50 Dose: 20 mg Documented by: Fexofenadine HCl (Fexofenadine Hcl 180 Mg Tab) 180 mg PO HS CAROLANN Stop: 03/27/21 21:59 Last Admin: 02/26/21 21:49 Dose: 180 mg Documented by: Fluoxetine HCl (Fluoxetine Hcl 20 Mg Cap) 20 mg PO DAILY CAROLANN Stop: 03/28/21 08:59 Last Admin: 02/27/21 08:50 Dose: 20 mg Documented by: Hydroxyzine HCl (Hydroxyzine Hcl 25 Mg Tab) 50 mg PO HSZ PRN PRN Reason: Insomnia Stop: 03/27/21 14:08 Hydroxyzine HCl (Hydroxyzine Hcl 25 Mg Tab) 25 mg PO Q4H PRN PRN Reason: Anxiety Stop: 03/27/21 14:08 Magnesium Hydroxide (Magnesium Hydroxide Susp 30 Ml Udc) 30 ml PO DAILY PRN PRN Reason: Constipation Stop: 03/27/21 14:08 *Junel Fe*Non- Formulary Patient's Own Med 1 ea N/A HS CAROLANN; Protocol Stop: 03/27/21 21:59 Last Admin: 02/26/21 21:37 Dose: 1 tab Documented by: Facial Compound: Non -Formulary Patient's Own Med 1 ea N/A HS CAROLANN Stop: 03/28/21 21:59 Last Admin: 02/26/21 21:36 Dose: 1 ea Documented by: Sodium Chloride (Sodium Chloride 0.65% Na Soln 45 Ml ([place])) 1 - 2 sprays NA PRN PRN PRN Reason: Nasal Dryness/Congestion Stop: 03/27/21 14:08 Mental Health & Subst Abuse Tx Psychiatrist Name of Psychiatrist: Dr. Luz Marina [facility] Therapist Name of Therapist: Libertad Pappas @ [facility] Therapist's Date of Therapist Appointment: 03/04/21 Time of Therapist Appointment: 3:30 Cistern Room Working Supervisor Name of Cistern Room Working Supervisor: [facility] Phone Number for Cistern Room Working Supervisor: [phone] Post Discharge Appointments Primary Care Physician Name Of Family Doctor: [facility] Primary Care Time of Appointment with PCP: Follow up as needed Provider Appointment Comment: [facility] [place] Contact Information Discharge Discharge Address: [address], [address], [place], [place] (1) Depression Active/Remission status: currently active Depression Type: major depressive disorder Major depression episode severity: severe Major depression recurrence: recurrent Psychotic features: without psychotic features Qualified Code(s): F33.2 - Major depressive disorder, recurrent severe without psychotic features
[2021-02-27 17:21] LABS: MDA negative; MDEA negative; MDMA (Ecstasy) Urine, Confirm negative; Marijuana Quant, GCMS Urine 47 ng/mL (<5)
[2021-02-27] MEDS: JUNEL FE SCH (22:09)
[2021-02-27] MEDS: FEXOFENADINE HCL 180 MG TAB PO SCH (22:09)
[2021-02-27] MEDS: [UNRECOGNIZED DRUG - OTHER] SCH (22:12)
[2021-02-28] MEDS: FLUoxetine HCL 10 MG CAP PO SCH (09:01)
--- NOTE | 2021-02-28 09:11 | Psychiatric Progress Note ---
Date of Service February 28, 2021 Impression / Recommendations Impression 20-year-old female admitted voluntarily for inpatient psychiatric treatment on 02/25/21 after presenting to the ED with worsening depression and SI with plans to either overdose or wreck her car. We are continuing cross-titration from duloxetine to fluoxetine, while addressing family relationships and coping strategies. Inpatient treatment remains medically necessary due to severity of symptoms and risk for suicide if discharged. (1) Suicidal ideations: 02/25 - Admitted to a locked inpatient behavioral health unit, on q15 minute safety checks - Encourage medication initiation/adjustments as indicated - Encourage participation in group and recreational therapies - Gather collateral information from outpatient providers - Suggest family meeting to involve outpatient supports in safety planning - Arrange appropriate aftercare 02/26 - Able to contract for safety on the unit, but not outside the hospital. 02/27 - Same as above, ongoing SI - both hopelessness and suicidality related to depression as well as intrusive SI that seems more ego dystonic in nature - Overwhelming conversation with father this morning which led to significant worsening of mood and onset of SI - Still able to contract for safety on the unit, encourage processing with staff. 02/28 - Intrusive negative thoughts of self-worth, suicidal thinking - presently they are ego dystonic in nature, patient using coping skills - Denies intent or current plan, but does not yet feel able to contract for safety outside of hospital setting (2) Depression: 02/25 - Continue cross-titration from duloxetine to fluoxetine. Next step was for 20mg of duloxetine and 20mg of fluoxetine to start 02/27. Pt is agreeable with making that change tomorrow morning, reviewed ability to progress more rapidly through this taper if desired now that she is supervised in the inpatient setting. - Gather collateral information and coordinate with outpatient psychiatric providers - Encourage participation in group and recreational programming - Assist with development of healthy and effective coping strategies - Schedule support meeting with parents/roommate to discuss discharge and safety planning - Assist with completion of a written safety plan 02/26 - continue cross taper, process stressors. 02/27 - Starting next step of cross-taper tomorrow morning - discontinuing duloxetine and titrating fluoxetine to 30mg qAM. Pt admits to history of worsening depression and SI with medication adjustments in the past, therefore ongoing inpatient treatment is necessary to ensure safety at this time - Pt admits to significant worsening of mood today after a difficult call with her father - Support meeting this afternoon with friends - Pt reporting ongoing SI, inability to contract for safety outside of hospital setting 02/28 - Fluoxetine 30mg qAM - pt reports improvement in mood, but worsening anxiety today. Reviewed general options regarding other medication considerations, however, patient is hesitant to add additional medication at this time which seems appropriate. - Continue to encourage utilization of coping strategies - Support meeting with friends went well yesterday. Pt has had some difficult, but productive conversations with her parents regarding setting boundaries (3) Obsessive-compulsive and related disorder: 02/25 - Historical diagnosis of OCD from outpatient providers related to obsessive symptoms checking (COVID-19, , etc) as well as intrusive vivid thoughts of completing suicide. - Cross-titration from duloxetine to fluoxetine as outlined above - Assist with education on diagnosis as well as development of healthy and effective coping strategies. 02/27 - Additional information received and reviewed regarding obsessive thinking, which seemed more prominent than compulsive behaviors - Pt does admit that some of the suicidal thinking is ego dystonic in nature, intrusive thoughts of negative self-worth and causing harm to herself even when mood is good. - Continue to monitor 02/28 - Ongoing ego dystonic negative self thoughts and thoughts of suicide. States she is feeling better able to dismiss or distract herself from the thinking. (4) Celiac disease: 02/25 - Gluten free diet - Dietary consultation if desired - Diagnosed Summer 2019, not primary focus of treatment (5) Abnormal urinalysis: 02/25 - UA significant for trace protein, 2+ blood, 1+ leukocyte esterase, 2+ bacteria, 10-30 RBC and WBC, 5-10 hyaline casts, and >30 epithelial cells. - Pt denies symptoms of UTI - urine sent for culture. 02/26 -final culture results indicate contaminated sample (more than 3 types of organisms present, all moderate counts mixed probable skin alex). Inventory Assets Strengths: willingness for treatment, intelligent, decent insight into psychiatric conditions Needs: resolution of suicidal thinking, medication adjustments to target depression, development of healthy and effective coping skills Risk Factors Assessment Male: No : Yes Do You Have Access To A Gun?: No (recently got a handgun, kept it at parent's house to limit risk of selfharm) Health Problems: Yes Mental Health Diagnoses: Yes Substance Use Disorders: No Previous Attempt: No Family History of Suicide: No Previous Psychiatric Hospitalization: No Hopelessness: Yes Smoker: No Protective Factors Assessment Mandaeism Beliefs: No : No Responsible for Young Children: No Employed: No Stable Relationships: Yes Supportive Family: Yes Good Rapport with Provider: Yes Interval History Identifying Information ALEX GARY is a 20-year-old F [employer] who currently lives in [place] with her roommate, has a history of depression, and was admitted on 02/25/21 at 14:40 on a 201 voluntary commitment for suicidal ideation with plan to overdose or wreck her car. Chief Complaint "Um, I'm feeling really anxious." Review of Systems Notes Constitutional: reports poor sleep last evening Cardiovascular: denied Respiratory: denied Gastrointestinal: denied Neurological: denied Psychiatric: denies symptoms other than stated above Total of at least 10 systems reviewed, pertinent positives as above and in HPI. Sleep Information Total Hours of Sleep: 5.5 Sleep Comments: pt on q-15 minute checks Meal Information Percent Meal Consumed - Breakfast: 0 Percent Meal Consumed - Lunch: 90 Percent Meal Consumed - Dinner: 100 Subjective Subjective Patient was seen & assessed and interval progress reviewed with nursing and social work. Staff report the patient has been participating in group programming. She admitted to less SI last evening, but still feeling she could not contract for safety outside of the hospital setting. Pt was reportedly more isolative last evening. She did have a supportive phone meeting with friends. Pt was seen today, requesting a dose of hydroxyzine at the nurses station for anxiety. Pt briefly process with this provider that she has been experiencing increased anxiety since last evening, but could not identify a trigger. She admitted to poor sleep, "worse than the night before." We followed up on this conversation ~20 minutes after the dose of hydroxyzine had been given. She states that she is still feeling very anxious. Upon further questioning, the patient was able to identify that anxiety likely stemmed from a difficult conversation with parents last evening. She shared that she initially was not going to call her parents, as the conversation with her dad that morning was overwhelming, but decided to anyway. Pt states "I hadn't planned on getting into it with them, but I was like 'oh well, here we go'." Pt states that she spoke with her dad about the way she perceived the comments he made during their earlier call, and they were able to discuss the discrepancy in perception and come to an understanding. She also shared with her mother that she could no longer take on the role of parenting her sister - admitting to feeling as though she has taken on a lot of responsibility with decisions about her sister's mental health treatment and feels this burden has been traumatizing at times. Pt states that it was a difficult conversation to have, but ultimately feels as though her mother understood. Pt states that she also had several calls with friend which went well. Pt states her depressions seems to be "lifting" and she is noticing more energy. Pt states "this anxiety was probably here all along, but I was too focused on the depression to notice." We reviewed coping strategies the patient can use here on the unit. Pt reports ongoing ego dystonic SI and intrusive negative self-talk, but states "it's getting a lot easier to say, 'No, f*ck you. Go away'." Pt states her goal for today is to "learn to manage the anxiety." She denied other needs or concerns at this time. Physical Exam Psychiatric Orientation: alert, oriented x 3 and cooperative Apperance: appropriately dressed, appropriately groomed and appeared stated age Eye Contact: good eye contact Motor Behavior: + psychomotor agitation appearing very restless/anxious. Legs bouncing up and down constantly throughout conversation. Frequently fidgeting with fingers as well. Speech: normal rate/rhythm/volume of speech Affect: + anxious affect (nervous laughter/joking) Mood: + depressed mood (but admits "I think the depression is lifting, on the uptick") and + anxious mood Thought Process: goal directed thought process, clear/coherent thought process and thought association intact Thought Content: reality based without delusions; no hopelessness and no worthlessness Suicidal Thoughts: denies suicidal intent; + reports suicidal thoughts admits SI is intrusive and ego dystonic, better able to distract from thoughts - still unable to contract for safety outside of hospital setting Homicidal Thoughts: denies homicidal thoughts Hallucinations: no auditory hallucinations and no visual hallucinations Cognition: attention grossly intact and language grossly intact Estimated Intelligence: consistent with education level Insight: + fair insight Judgement: + fair judgement Vital Signs (Past 24 Hours) Last Vital Signs Temp 36.8 C 02/28/21 06:45 Pulse 97 H 02/28/21 06:45 Resp 16 02/28/21 06:45 BP 126/78 02/28/21 06:45 Pulse Ox 97 02/25/21 15:23 Results & Data ([facility]) Laboratory Results Laboratory Results - last 24 hr 02/25/21 10:51 Urine MDEA negative MDMA negative Urine MDMA negative U Marijuana THC Carboxy 47 H Drug Screen Comment SEE NOTE Current Inpatient Medications Current Inpatient Medications: Current Inpatient Medications Acetaminophen (Acetaminophen 325 Mg Tab) 650 mg PO Q4H PRN PRN Reason: Headache or Minor Fever Stop: 03/27/21 14:08 Last Admin: 02/27/21 16:56 Dose: 650 mg Documented by: Al Hydrox/Mg Hydrox/Simethicone (Aluminum/Magnesium Susp 30 Ml Udc) 30 ml PO Q4H PRN PRN Reason: GI Upset Stop: 03/27/21 14:08 Bismuth Subsalicylate (Bismuth Subsalicylate Liqd 236 Ml) 15 ml PO PRN PRN PRN Reason: Loose Stool Stop: 03/27/21 14:08 Fexofenadine HCl (Fexofenadine Hcl 180 Mg Tab) 180 mg PO HS CAROLANN Stop: 03/27/21 21:59 Last Admin: 02/27/21 22:09 Dose: 180 mg Documented by: Fluoxetine HCl (Fluoxetine Hcl 10 Mg Cap) 30 mg PO DAILY CAROLANN Stop: 03/30/21 08:59 Last Admin: 02/28/21 09:01 Dose: 30 mg Documented by: Hydroxyzine HCl (Hydroxyzine Hcl 25 Mg Tab) 50 mg PO HSZ PRN PRN Reason: Insomnia Stop: 03/27/21 14:08 Hydroxyzine HCl (Hydroxyzine Hcl 25 Mg Tab) 25 mg PO Q4H PRN PRN Reason: Anxiety Stop: 03/27/21 14:08 Magnesium Hydroxide (Magnesium Hydroxide Susp 30 Ml Udc) 30 ml PO DAILY PRN PRN Reason: Constipation Stop: 03/27/21 14:08 *June Fe*Non- Formulary Patient's Own Med 1 ea N/A CAROLANN; Protocol Stop: 03/27/21 21:59 Last Admin: 02/27/21 22:09 Dose: 1 tab Documented by: Facial Compound: Non -Formulary Patient's Own Med 1 ea N/A HS CAROLANN Stop: 03/28/21 21:59 Last Admin: 02/27/21 22:12 Dose: 1 ea Documented by: Sodium Chloride (Sodium Chloride 0.65% Na Soln 45 Ml ([place])) 1 - 2 sprays NA PRN PRN PRN Reason: Nasal Dryness/Congestion Stop: 03/27/21 14:08 Mental Health & Subst Abuse Tx Psychiatrist Name of Psychiatrist: [facility] - Dr. Luz Marina Hughes Psychiatrist's Date of Appointment with Psychiatrist: 03/19/21 Time of Appointment with Psychiatrist: 10:30 a.m. Psychiatric Appointment Comment: Virtual/Telehealth Therapist Name of Therapist: [facility] - [facility] Pappas Therapist's Date of Therapist Appointment: 03/04/21 Time of Therapist Appointment: 3:30 p.m. Therapy Appointment Comment: Virtual/Telehealth Veterinarian Assistant Name of Veterinarian Assistant: [facility] Phone Number for Veterinarian Assistant: [phone] Post Discharge Appointments Primary Care Physician Name Of Family Doctor: [facility] Primary Care Time of Appointment with PCP: Follow up as needed Provider Appointment Comment: [facility] Contact Information Discharge Discharge Address: [address] [place] [address], [facility], [place], [place] (1) Depression Active/Remission status: currently active Depression Type: major depressive disorder Major depression episode severity: severe Major depression recurrence: recurrent Psychotic features: without psychotic features Qualified Code(s): F33.2 - Major depressive disorder, recurrent severe without psychotic features
[2021-02-28] MEDS: [UNRECOGNIZED DRUG - OTHER] SCH (21:19)
[2021-02-28] MEDS: JUNEL FE SCH (21:20)
[2021-02-28] MEDS: FEXOFENADINE HCL 180 MG TAB PO SCH (21:20)
[2021-03-01] MEDS: FLUoxetine HCL 10 MG CAP PO SCH (08:53)
--- NOTE | 2021-03-01 09:34 | Psychiatric Progress Note ---
Date of Service March 01, 2021 Impression / Recommendations Impression 20-year-old female admitted voluntarily for inpatient psychiatric treatment on 02/25/21 after presenting to the ED with worsening depression and SI with plans to either overdose or wreck her car. We are continuing cross-titration from duloxetine to fluoxetine, while addressing family relationships and coping strategies. Inpatient treatment remains medically necessary due to severity of symptoms and risk for suicide if discharged. (1) Suicidal ideations: 02/25 - Admitted to a locked inpatient behavioral health unit, on q15 minute safety checks - Encourage medication initiation/adjustments as indicated - Encourage participation in group and recreational therapies - Gather collateral information from outpatient providers - Suggest family meeting to involve outpatient supports in safety planning - Arrange appropriate aftercare 02/26 - Able to contract for safety on the unit, but not outside the hospital. 02/27 - Same as above, ongoing SI - both hopelessness and suicidality related to depression as well as intrusive SI that seems more ego dystonic in nature - Overwhelming conversation with father this morning which led to significant worsening of mood and onset of SI - Still able to contract for safety on the unit, encourage processing with staff. 02/28 -03/01 - Intrusive negative thoughts of self-worth, suicidal thinking - presently they are ego dystonic in nature, patient using coping skills and states they are not distressing - Denies intent or current plan, but does not yet feel able to contract for safety outside of hospital setting (2) Depression: 02/25 - Continue cross-titration from duloxetine to fluoxetine. Next step was for 20mg of duloxetine and 20mg of fluoxetine to start 02/27. Pt is agreeable with making that change tomorrow morning, reviewed ability to progress more rapidly through this taper if desired now that she is supervised in the inpatient setting. - Gather collateral information and coordinate with outpatient psychiatric providers - Encourage participation in group and recreational programming - Assist with development of healthy and effective coping strategies - Schedule support meeting with parents/roommate to discuss discharge and safety planning - Assist with completion of a written safety plan 02/26 - continue cross taper, process stressors. 02/27 - Starting next step of cross-taper tomorrow morning - discontinuing duloxetine and titrating fluoxetine to 30mg qAM. Pt admits to history of worsening depression and SI with medication adjustments in the past, therefore ongoing inpatient treatment is necessary to ensure safety at this time - Pt admits to significant worsening of mood today after a difficult call with her father - Support meeting this afternoon with friends - Pt reporting ongoing SI, inability to contract for safety outside of hospital setting 02/28 - Fluoxetine 30mg qAM - pt reports improvement in mood, but worsening anxiety today. Reviewed general options regarding other medication considerations, however, patient is hesitant to add additional medication at this time which seems appropriate. - Continue to encourage utilization of coping strategies - Support meeting with friends went well yesterday. Pt has had some difficult, but productive conversations with her parents regarding setting boundaries 03/01 - Titration fluoxetine to 40mg daily starting tomorrow (pt offered to receive supplemental 10mg dose with lunch today but declined). - Reports ongoing improvement in depressive symptoms, denies SI related to hopelessness or depression (ongoing intrusive SI more likely in the setting of OCD traits) - Continue to encourage group programming and utilization of coping strategies (3) Obsessive-compulsive and related disorder: 02/25 - Historical diagnosis of OCD from outpatient providers related to obsessive symptoms checking (COVID-19, , etc) as well as intrusive vivid thoughts of completing suicide. - Cross-titration from duloxetine to fluoxetine as outlined above - Assist with education on diagnosis as well as development of healthy and effective coping strategies. 02/27 - Additional information received and reviewed regarding obsessive thinking, which seemed more prominent than compulsive behaviors - Pt does admit that some of the suicidal thinking is ego dystonic in nature, intrusive thoughts of negative self-worth and causing harm to herself even when mood is good. - Continue to monitor 02/28 - 03/01 - Ongoing ego dystonic negative self thoughts and thoughts of suicide. States she is feeling better able to dismiss or distract herself from the thinking. - Titrating fluoxetine as tolerated (4) Celiac disease: 02/25 - Gluten free diet - Dietary consultation if desired - Diagnosed Summer 2019, not primary focus of treatment (5) Abnormal urinalysis: 02/25 - UA significant for trace protein, 2+ blood, 1+ leukocyte esterase, 2+ bacteria, 10-30 RBC and WBC, 5-10 hyaline casts, and >30 epithelial cells. - Pt denies symptoms of UTI - urine sent for culture. 02/26 -final culture results indicate contaminated sample (more than 3 types of organisms present, all moderate counts mixed probable skin alex). Inventory Assets Strengths: willingness for treatment, intelligent, decent insight into psychiatric conditions Needs: resolution of suicidal thinking, medication adjustments to target depression, development of healthy and effective coping skills Risk Factors Assessment Male: No : Yes Do You Have Access To A Gun?: No (recently got a handgun, kept it at parent's house to limit risk of selfharm) Health Problems: Yes Mental Health Diagnoses: Yes Substance Use Disorders: No Previous Attempt: No Family History of Suicide: No Previous Psychiatric Hospitalization: No Hopelessness: Yes Smoker: No Protective Factors Assessment Amish Beliefs: No : No Responsible for Young Children: No Employed: No Stable Relationships: Yes Supportive Family: Yes Good Rapport with Provider: Yes Interval History Identifying Information ALEX GARY is a 20-year-old F [employer] [facility] who currently lives in [place] with her roommate, has a history of depression, and was admitted on 02/25/21 at 14:40 on a 201 voluntary commitment for suicidal ideation with plan to overdose or wreck her car. Chief Complaint "Um, I think today is feeling better." Review of Systems Notes Constitutional: reports poor quality sleep, but fewer awakenings last night Cardiovascular: denied Respiratory: denied Gastrointestinal: denied Neurological: denied Psychiatric: denies symptoms other than stated above Total of at least 10 systems reviewed, pertinent positives as above and in HPI. Sleep Information Total Hours of Sleep: 7 Sleep Comments: pt on q-15 minute checks Meal Information Percent Meal Consumed - Breakfast: 90 Percent Meal Consumed - Lunch: 90 Percent Meal Consumed - Dinner: 90 Subjective Subjective Patient was seen & assessed and interval progress reviewed with treatment team. Staff report the patient has been cooperative with group programming. She was seen today to assess progress since admission. Pt states "Um, I think today is feeling better." She reports she is feeling less anxious this morning after a phone call with her dad. Pt states that she and her father had a difficult conversation last evening where "he asked a lot of questions that just really hit on my insecurities. I found myself getting defensive." Pt states she processed the call with her mother and with staff and eventually spoke with her father about her concerns. She states she encouraged him to "do his own researc h on depression, because I get defensive feeling like I have to explain everything." Ultimately patient feels better about being able to repeatedly verbalize boundaries to her parents in a productive way and is hoping to be able to continue this. Her current anxiety is related to whether she feels it's appropriate for them to pick her up on discharge, or if she feels a visit may be overwhelming as she adjusts to transitioning home. Pt states she will continue to process what is best for her, and roommate could pick her up if necessary. Pt reports her mood and energy have improved. She denies SI, plan, or intent related to depressive symptoms. Intrusive SI in the form of statements such as "go " or "kill yourself" and less frequent and less severe, but ongoing nonetheless. She admits to feeling better able to distract herself from these thoughts. Pt is agreeable with continuing titration of fluoxetine, but preferred to wait until tomorrow morning to titrate the dose. She reports feeling she will likely be ready for discharge tomorrow. Denies other needs or concerns today. Physical Exam Psychiatric Orientation: alert, oriented x 3 and cooperative (and pleasant) Apperance: appropriately dressed, appropriately groomed and appeared stated age Eye Contact: good eye contact Motor Behavior: + psychomotor agitation Speech: normal rate/rhythm/volume of speech Affect: + anxious affect Mood: + anxious mood (mildly improved); no depressed mood Thought Process: goal directed thought process, clear/coherent thought process and thought association intact Thought Content: reality based without delusions; no hopelessness and no worthlessness Suicidal Thoughts: denies suicidal thoughts and denies suicidal intent reports intrusive thoughts of "kill yourself" and "go " - they remain ego dystonic in nature and patient reports feeling she is more easily able to distract herself from these thoughts. Homicidal Thoughts: denies homicidal thoughts Hallucinations: no auditory hallucinations and no visual hallucinations Cognition: attention grossly intact and language grossly intact Estimated Intelligence: consistent with education level Insight: good insight Judgement: + fair judgement Vital Signs (Past 24 Hours) Last Vital Signs Temp 36.6 C 03/01/21 06:47 Pulse 73 03/01/21 06:48 Resp 16 03/01/21 06:47 BP 113/76 03/01/21 06:48 Pulse Ox 97 02/25/21 15:23 Results & Data ([facility]) Current Inpatient Medications Current Inpatient Medications: Current Inpatient Medications Acetaminophen (Acetaminophen 325 Mg Tab) 650 mg PO Q4H PRN PRN Reason: Headache or Minor Fever Stop: 03/27/21 14:08 Last Admin: 02/27/21 16:56 Dose: 650 mg Documented by: Al Hydrox/Mg Hydrox/Simethicone (Aluminum/Magnesium Susp 30 Ml Udc) 30 ml PO Q4H PRN PRN Reason: GI Upset Stop: 03/27/21 14:08 Bismuth Subsalicylate (Bismuth Subsalicylate Liqd 236 Ml) 15 ml PO PRN PRN PRN Reason: Loose Stool Stop: 03/27/21 14:08 Fexofenadine HCl (Fexofenadine Hcl 180 Mg Tab) 180 mg PO HS CAROLANN Stop: 03/27/21 21:59 Last Admin: 02/28/21 21:20 Dose: 180 mg Documented by: Fluoxetine HCl (Fluoxetine Hcl 10 Mg Cap) 30 mg PO DAILY CAROLANN Stop: 03/30/21 08:59 Last Admin: 03/01/21 08:53 Dose: 30 mg Documented by: Hydroxyzine HCl (Hydroxyzine Hcl 25 Mg Tab) 50 mg PO HSZ PRN PRN Reason: Insomnia Stop: 03/27/21 14:08 Hydroxyzine HCl (Hydroxyzine Hcl 25 Mg Tab) 25 mg PO Q4H PRN PRN Reason: Anxiety Stop: 03/27/21 14:08 Last Admin: 02/28/21 09:44 Dose: 25 mg Documented by: Magnesium Hydroxide (Magnesium Hydroxide Susp 30 Ml Udc) 30 ml PO DAILY PRN PRN Reason: Constipation Stop: 03/27/21 14:08 *Junel Fe*Non- Formulary Patient's Own Med 1 ea N/A HS CAROLANN; Protocol Stop: 03/27/21 21:59 Last Admin: 02/28/21 21:20 Dose: 1 tab Documented by: Facial Compound: Non -Formulary Patient's Own Med 1 ea N/A HS CAROLANN Stop: 03/28/21 21:59 Last Admin: 02/28/21 21:19 Dose: 1 ea Documented by: Sodium Chloride (Sodium Chloride 0.65% Na Soln 45 Ml ([place])) 1 - 2 sprays NA PRN PRN PRN Reason: Nasal Dryness/Congestion Stop: 03/27/21 14:08 Mental Health & Subst Abuse Tx Psychiatrist Name of Psychiatrist: [facility] Valentín Hughes Psychiatrist's Date of Appointment with Psychiatrist: 03/19/21 Time of Appointment with Psychiatrist: 10:30 a.m. Psychiatric Appointment Comment: Virtual/Telehealth Therapist Name of Therapist: Mauricio [facility] Therapist's Date of Therapist Appointment: 03/04/21 Time of Therapist Appointment: 3:30 p.m. Therapy Appointment Comment: Virtual/Telehealth Kelp Gatherer Name of Kelp Gatherer: [facility] Phone Number for Kelp Gatherer: [phone] Date of Appointment with Kelp Gatherer: 03/05/21 Time of Appointment with Kelp Gatherer: 2:30pm Post Discharge Appointments Primary Care Physician Name Of Family Doctor: [facility] Primary Care Time of Appointment with PCP: Follow up as needed Provider Appointment Comment: [facility] Other #1: Name of Aftercare Appointment: [facility] Phone Number of Aftercare Appointment: [phone] Aftercare Appointment Comment: On waitlist - please follow up Contact Information Discharge Discharge Address: [address] [place] [address], [facility], [place], [place] (1) Depression Active/Remission status: currently active Depression Type: major depressive disorder Major depression episode severity: severe Major depression recurrence: recurrent Psychotic features: without psychotic features Qualified Code(s): F33.2 - Major depressive disorder, recurrent severe without psychotic features
[2021-03-01] MEDS ORDERED: hydrOXYzine HCl 25 MG TAB PO PRN ×2 (09:58→10:16)
[2021-03-01] MEDS: FEXOFENADINE HCL 180 MG TAB PO SCH (20:57)
[2021-03-01] MEDS: JUNEL FE SCH (20:57)
[2021-03-01] MEDS: [UNRECOGNIZED DRUG - OTHER] SCH (20:57)
[2021-03-02] MEDS ORDERED: FLUoxetine HCL 20 MG CAP PO SCH (09:00)
--- NOTE | 2021-03-02 09:43 | Discharge Summary ---
Date of Service March 02, 2021 History of Present Illness Per admitting provider: Lisa Wolfe is a 20-year-old female admitted voluntarily for inpatient psychiatric treatment on 02/25/21 after presenting to the ED with worsening depression and suicidal ideation with plan to either overdose on her medications or wreck her car. ED notes suggest the patient has been undergoing recent medication changes and has been experiencing intrusive suicidal thoughts. 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 Pt reported family stressors as well as school stress, stating that she had to drop a class recently. Tox screen was positive for THC and MDMA, UA was abnormal, and otherwise patient's ED work-up was negative for any acute concerns. COVID test was negative. Pt appears nervous, but was cooperative with psychiatric evaluation. Pt states "I've been diagnosed with depression since July 2020. We had been trying different meds out and in the process found out I had OCD." Pt states that she had noticed suicidal thoughts developing for the past two months, but significantly worse in the last 3 weeks. Pt states they have developed from feelings of hopelessness and desire to escape into intense and vivid intrusive thoughts of suicide. She also reports intrusive images of her acting out her plans. Pt states that she has plans to either wreck her car or overdose on medication. Although patient did not have an anticipated timeline, she states she had developed her plan to the point of knowing the time of day, "song choice", and the location of her anticipated suicide attempt. Pt did reach out to her roommate about her thoughts and roommate agreed to hide the patient's car keys and excess medications. Pt states that she realized she needed hospitalization after she began to feel tempted to search the apartment for these items - uncertain she could resist acting on the thoughts if they were found. Pt feels the thoughts had worsened in the setting of recent medication adjustments (titration of duloxetine) and is working with her outpatient psychiatrist to make additional changes. She has started a cross-taper from duloxetine to fluoxetine within the last week. Pt recalls history of depressive episodes since childhood. In particular, significant episodes of depression were Pk year of high school, second semester of Freshman year of college, and current episode dating back to summer when she was diagnosed with Celiac disease while living alone in [place]. Pt admits to history of outpatient counseling, but did not begin medications for her depression until 07/2020. Pt states that while working with her current providers, the idea of OCD has been discussed. Pt admits to primary concern of "I've been obsessed with symptom checking, primarily for and COVID-19." She states it was to the point where she was obsessively weighing herself with concern that weight gain meant she was . Pt was also often convincing herself that she needed to be tested for COVID. The severity of these symptoms has varied with medication changes. Primary depressive symptoms include decreased energy, sleep disturbances (difficulty staying asleep and roguer awakening, but also excessive sleeping at times), fluctuation in appetite, decreased motivation, anhedonia, and increased isolation. Pt denies HI, SIB, A/V hallucinations, paranoia, jess/hypomania, other symptoms more suggestive of a bipolar presentation, PTSD, eating disorder, and other specific psychiatric symptoms. Physical Exam Mental Examination See admission H&P and DOD summary. Vital Signs (Past 24 Hours) Last Vital Signs Temp 36.9 C 03/02/21 06:00 Pulse 95 H 03/02/21 06:00 Resp 18 03/02/21 06:00 BP 117/74 03/02/21 06:16 Pulse Ox 96 03/02/21 06:00 Principal Diagnosis major depressive disorder Psychiatric Data See daily stay summary. In short, safety was maintained and the patient was cooperative with care. Medication changes included discontinuing Cymbalta 30 mg and continuing Cymbalta cross taper to 40 mg and they tolerated this well. A family session was held with friend and roommate as more supportive per patient than family and safety plan was completed prior to discharge. Day of Discharge Assessment Today the patient voices readiness for discharge. They note improvement in mood and deny thoughts to harm self or others. Thoughts remain organized and they are improved from admission. There is no evidence of psychosis. They agree to take mediations as prescribed and keep follow-up appointments. They are stable for discharge to outpatient level of care. Transition of Care Transition Of Care Record: was reviewed with the patient Advance Directives Advance Directives Information Provided: Yes Advance Directives: No Mental Health Advance Directive: No Advance Directives on File: No Living Will: No Power of Program Support Assistant: No Advance Directives Reason:: Declines as Mental Health Visit. Risk Factors Assessment Male: No : Yes Do You Have Access To A Gun?: No (recently got a handgun, kept it at parent's house to limit risk of selfharm) Health Problems: Yes Mental Health Diagnoses: Yes Substance Use Disorders: No Previous Attempt: No Family History of Suicide: No Previous Psychiatric Hospitalization: No Hopelessness: Yes Smoker: No Protective Factors Assessment Presybeterian Beliefs: No : No Responsible for Young Children: No Employed: No Stable Relationships: Yes Supportive Family: Yes Good Rapport with Provider: Yes Tobacco Cessation at Discharge Tobacco Cessation Medication Prescribed at Discharge: Not Applicable/Non-Smoker Total Time Total Time Spent: Greater Than 30 Minutes Discharge Data Lab Results 02/25/21 02/25/21 02/25/21 10:51 10:51 10:51 WBC RBC Hgb Hct MCV MCH MCHC RDW Std Deviation RDW Coeff of Lorenza Plt Count MPV Immature Gran % (Auto) Neut % (Auto) Lymph % (Auto) [place] % (Auto) Eos % (Auto) Baso % (Auto) Neut # (Auto) Lymph # (Auto) [place] # (Auto) Eos # (Auto) Baso # (Auto) Immature Gran # (Auto) Sodium Potassium Chloride Carbon Dioxide Anion Gap BUN Creatinine Est Cr Clr Drug Dosing Est GFR ( Amer) Est GFR (Non-Af Amer) BUN/Creatinine Ratio Glucose Calcium Total Bilirubin AST ALT Alkaline Phosphatase Total Protein Albumin Globulin Albumin/Globulin Ratio TSH Urine Color Yellow Urine Appearance Clear Urine pH 6.0 Ur Specific [place] 1.029 Urine Protein Trace H Urine Glucose (UA) Negative Urine Ketones Negative Urine Blood 2+ H Urine Nitrite Negative Urine Bilirubin Negative Urine Urobilinogen Negative Ur Leukocyte Esterase 1+ H Urine WBC (Auto) 10-30 H Urine RBC (Auto) 10-30 H U Hyaline Cast (Auto) 5-10 H U Epithel Cells (Auto) >30 H Urine Bacteria (Auto) 2+ H POC Ur Test Salicylates Urine Opiates Screen Neg Ur Methadone, Qual Neg Acetaminophen Urine Barbiturates Neg Ur Phencyclidine (PCP) Neg U Amphetamin/Meth Scrn Neg Urine MDEA negative MDMA (Ecstasy) Screen Pos H MDMA negative Urine MDMA negative U Benzodiazepines Scrn Neg Ur Cocaine Metabolite Neg U Marijuana (THC) Screen Pos H U Marijuana THC Carboxy 47 H Drug Screen Comment SEE NOTE Ethyl Alcohol mg/dL COVID-19 Eval Order SARS-CoV-2 (PCR) Influenza Type A (PCR) Influenza Type B (PCR) RSV (RT-PCR) 02/25/21 02/25/21 02/25/21 11:00 11:00 11:00 WBC 8.48 RBC 4.73 Hgb 13.7 Hct 40.5 MCV 85.6 MCH 29.0 MCHC 33.8 RDW Std Deviation 41.3 RDW Coeff of Lorenza 13.1 Plt Count 391 MPV 9.0 Immature Gran % (Auto) 0.2 Neut % (Auto) 64.2 Lymph % (Auto) 27.7 [place] % (Auto) 6.4 Eos % (Auto) 1.3 Baso % (Auto) 0.2 Neut # (Auto) 5.44 Lymph # (Auto) 2.35 [place] # (Auto) 0.54 Eos # (Auto) 0.11 Baso # (Auto) 0.02 Immature Gran # (Auto) 0.02 Sodium 137 Potassium 3.6 Chloride 107 Carbon Dioxide 25 Anion Gap 5.0 BUN 12 Creatinine 0.80 Est Cr Clr Drug Dosing 117.3 Est GFR ( Amer) 122.2 Est GFR (Non-Af Amer) 105.4 BUN/Creatinine Ratio 15.6 Glucose 91 Calcium 8.6 Total Bilirubin 0.3 AST 15 ALT 23 Alkaline Phosphatase 71 Total Protein 7.6 Albumin 3.9 Globulin 3.7 Albumin/Globulin Ratio 1.1 TSH 2.850 Urine Color Urine Appearance Urine pH Ur Specific [place] Urine Protein Urine Glucose (UA) Urine Ketones Urine Blood Urine Nitrite Urine Bilirubin Urine Urobilinogen Ur Leukocyte Esterase Urine WBC (Auto) Urine RBC (Auto) U Hyaline Cast (Auto) U Epithel Cells (Auto) Urine Bacteria (Auto) POC Ur Test Salicylates < 1.7 L Urine Opiates Screen Ur Methadone, Qual Acetaminophen < 2 L Urine Barbiturates Ur Phencyclidine (PCP) U Amphetamin/Meth Scrn Urine MDEA MDMA (Ecstasy) Screen MDMA Urine MDMA U Benzodiazepines Scrn Ur Cocaine Metabolite U Marijuana (THC) Screen U Marijuana THC Carboxy Drug Screen Comment Ethyl Alcohol mg/dL COVID-19 Eval Order SARS-CoV-2 (PCR) Influenza Type A (PCR) Influenza Type B (PCR) RSV (RT-PCR) 02/25/21 02/25/21 02/25/21 11:00 11:14 11:14 WBC RBC Hgb Hct MCV MCH MCHC RDW Std Deviation RDW Coeff of Lorenza Plt Count MPV Immature Gran % (Auto) Neut % (Auto) Lymph % (Auto) [place] % (Auto) Eos % (Auto) Baso % (Auto) Neut # (Auto) Lymph # (Auto) [place] # (Auto) Eos # (Auto) Baso # (Auto) Immature Gran # (Auto) Sodium Potassium Chloride Carbon Dioxide Anion Gap BUN Creatinine Est Cr Clr Drug Dosing Est GFR ( Amer) Est GFR (Non-Af Amer) BUN/Creatinine Ratio Glucose Calcium Total Bilirubin AST ALT Alkaline Phosphatase Total Protein Albumin Globulin Albumin/Globulin Ratio TSH Urine Color Urine Appearance Urine pH Ur Specific [place] Urine Protein Urine Glucose (UA) Urine Ketones Urine Blood Urine Nitrite Urine Bilirubin Urine Urobilinogen Ur Leukocyte Esterase Urine WBC (Auto) Urine RBC (Auto) U Hyaline Cast (Auto) U Epithel Cells (Auto) Urine Bacteria (Auto) POC Ur Test Salicylates Urine Opiates Screen Ur Methadone, Qual Acetaminophen Urine Barbiturates Ur Phencyclidine (PCP) U Amphetamin/Meth Scrn Urine MDEA MDMA (Ecstasy) Screen MDMA Urine MDMA U Benzodiazepines Scrn Ur Cocaine Metabolite U Marijuana (THC) Screen U Marijuana THC Carboxy Drug Screen Comment Ethyl Alcohol mg/dL < 3.0 COVID-19 Eval Order CovFluRsv at [facility] SARS-CoV-2 (PCR) NEGATIVE Influenza Type A (PCR) Negative Influenza Type B (PCR) Negative RSV (RT-PCR) Negative 02/25/21 Unknown WBC RBC Hgb Hct MCV MCH MCHC RDW Std Deviation RDW Coeff of Lorenza Plt Count MPV Immature Gran % (Auto) Neut % (Auto) Lymph % (Auto) [place] % (Auto) Eos % (Auto) Baso % (Auto) Neut # (Auto) Lymph # (Auto) [place] # (Auto) Eos # (Auto) Baso # (Auto) Immature Gran # (Auto) Sodium Potassium Chloride Carbon Dioxide Anion Gap BUN Creatinine Est Cr Clr Drug Dosing Est GFR ( Amer) Est GFR (Non-Af Amer) BUN/Creatinine Ratio Glucose Calcium Total Bilirubin AST ALT Alkaline Phosphatase Total Protein Albumin Globulin Albumin/Globulin Ratio TSH Urine Color Urine Appearance Urine pH Ur Specific [place] Urine Protein Urine Glucose (UA) Urine Ketones Urine Blood Urine Nitrite Urine Bilirubin Urine Urobilinogen Ur Leukocyte Esterase Urine WBC (Auto) Urine RBC (Auto) U Hyaline Cast (Auto) U Epithel Cells (Auto) Urine Bacteria (Auto) POC Ur Test NEG Salicylates Urine Opiates Screen Ur Methadone, Qual Acetaminophen Urine Barbiturates Ur Phencyclidine (PCP) U Amphetamin/Meth Scrn Urine MDEA MDMA (Ecstasy) Screen MDMA Urine MDMA U Benzodiazepines Scrn Ur Cocaine Metabolite U Marijuana (THC) Screen U Marijuana THC Carboxy Drug Screen Comment Ethyl Alcohol mg/dL COVID-19 Eval Order SARS-CoV-2 (PCR) Influenza Type A (PCR) Influenza Type B (PCR) RSV (RT-PCR) Hospital Course (1) Suicidal ideations: 02/25 - Admitted to a locked inpatient behavioral health unit, on q15 minute safety checks - Encourage medication initiation/adjustments as indicated - Encourage participation in group and recreational therapies - Gather collateral information from outpatient providers - Suggest family meeting to involve outpatient supports in safety planning - Arrange appropriate aftercare 02/26 - Able to contract for safety on the unit, but not outside the hospital. 02/27 - Same as above, ongoing SI - both hopelessness and suicidality related to depression as well as intrusive SI that seems more ego dystonic in nature - Overwhelming conversation with father this morning which led to significant worsening of mood and onset of SI - Still able to contract for safety on the unit, encourage processing with staff. 02/28 -03/01 - Intrusive negative thoughts of self-worth, suicidal thinking - presently they are ego dystonic in nature, patient using coping skills and states they are not distressing - Denies intent or current plan, but does not yet feel able to contract for safety outside of hospital setting (2) Depression: 02/25 - Continue cross-titration from duloxetine to fluoxetine. Next step was for 20mg of duloxetine and 20mg of fluoxetine to start 02/27. Pt is agreeable with making that change tomorrow morning, reviewed ability to progress more rapidly through this taper if desired now that she is supervised in the inpatient setting. - Gather collateral information and coordinate with outpatient psychiatric providers - Encourage participation in group and recreational programming - Assist with development of healthy and effective coping strategies - Schedule support meeting with parents/roommate to discuss discharge and safety planning - Assist with completion of a written safety plan 02/26 - continue cross taper, process stressors. 02/27 - Starting next step of cross-taper tomorrow morning - discontinuing duloxetine and titrating fluoxetine to 30mg qAM. Pt admits to history of worsening depression and SI with medication adjustments in the past, therefore ongoing inpatient treatment is necessary to ensure safety at this time - Pt admits to significant worsening of mood today after a difficult call with her father - Support meeting this afternoon with friends - Pt reporting ongoing SI, inability to contract for safety outside of hospital setting 02/28 - Fluoxetine 30mg qAM - pt reports improvement in mood, but worsening anxiety today. Reviewed general options regarding other medication considerations, however, patient is hesitant to add additional medication at this time which seems appropriate. - Continue to encourage utilization of coping strategies - Support meeting with friends went well yesterday. Pt has had some difficult, but productive conversations with her parents regarding setting boundaries 03/01 - Titration fluoxetine to 40mg daily starting tomorrow (pt offered to receive supplemental 10mg dose with lunch today but declined). - Reports ongoing improvement in depressive symptoms, denies SI related to hopelessness or depression (ongoing intrusive SI more likely in the setting of OCD traits) - Continue to encourage group programming and utilization of coping strategies (3) Obsessive-compulsive and related disorder: 02/25 - Historical diagnosis of OCD from outpatient providers related to obsessive symptoms checking (COVID-19, , etc) as well as intrusive vivid thoughts of completing suicide. - Cross-titration from duloxetine to fluoxetine as outlined above - Assist with education on diagnosis as well as development of healthy and effective coping strategies. 02/27 - Additional information received and reviewed regarding obsessive thinking, which seemed more prominent than compulsive behaviors - Pt does admit that some of the suicidal thinking is ego dystonic in nature, intrusive thoughts of negative self-worth and causing harm to herself even when mood is good. - Continue to monitor 02/28 - 03/01 - Ongoing ego dystonic negative self thoughts and thoughts of suicide. States she is feeling better able to dismiss or distract herself from the thinking. - Titrating fluoxetine as tolerated (4) Celiac disease: 02/25 - Gluten free diet - Dietary consultation if desired - Diagnosed Summer 2019, not primary focus of treatment (5) Abnormal urinalysis: 02/25 - UA significant for trace protein, 2+ blood, 1+ leukocyte esterase, 2+ bacteria, 10-30 RBC and WBC, 5-10 hyaline casts, and >30 epithelial cells. - Pt denies symptoms of UTI - urine sent for culture. 02/26 -final culture results indicate contaminated sample (more than 3 types of organisms present, all moderate counts mixed probable skin alex). Mental Health & Subst Abuse Tx Psychiatrist Name of Psychiatrist: [facility] - Dr. Luz Marina Hughes Psychiatrist's Date of Appointment with Psychiatrist: 03/19/21 Time of Appointment with Psychiatrist: 10:30 a.m. Psychiatric Appointment Comment: Virtual/Telehealth Therapist Name of Therapist: [facility] - [place] Therapist's Date of Therapist Appointment: 03/04/21 Time of Therapist Appointment: 3:30 p.m. Therapy Appointment Comment: Virtual/Telehealth Consumer Experience Consultant Name of Consumer Experience Consultant: [facility] Nicki Phone Number for Consumer Experience Consultant: [phone] Date of Appointment with Consumer Experience Consultant: 03/05/21 Time of Appointment with Consumer Experience Consultant: 2:30pm Case Management Appointment Comment: Pat will call you Post Discharge Appointments Primary Care Physician Name Of Family Doctor: [facility] Primary Care Time of Appointment with PCP: Follow up as needed Provider Appointment Comment: [facility] Smoking Cessation Counseling Tobacco Cessation Medication Prescribed at Discharge: Not Applicable/Non-Smoker Other #1: Name of Aftercare Appointment: [facility] Phone Number of Aftercare Appointment: [phone] Aftercare Appointment Comment: On waitlist - please follow up Contact Information Discharge Discharge Address: [address] [place] [address] Discharge Plan Discharge Items Patient Disposition: Home - Self-Care Reason For Visit: MDD,SI Discharge Diagnosis: same, SI resolved Activity: Resume your previous activity Non-emergency contact: Primary Care Provider, Psychiatrist and Therapist Call non-emergency contact if: you have any medication questions and your symptoms worsen Follow-up/Referrals: PCP,NO [Primary Care Provider] - Diet: Regular Addtl Attending Provider Instructions: SPECIAL CARE INSTRUCTIONS: 1. Follow through with your scheduled aftercare appointments. If unable to keep an appointment, please call to reschedule. 2. Take your medication only as prescribed. Medication should not be changed or stopped without the approval of your doctor. In the event of worsening symptoms or concerns about side effects, contact your doctor immediately. 3. Utilize new healthy coping skills, anger management skills, and stress management skills learned during your hospitalization. Journal feelings and process them with a support person. Identify stressors or situations that may result in relapse, deterioration or inappropriate behaviors and develop a plan to deal with those issues. 4. If your coping skills are ineffective and you are in crisis, contact your outpatient providers for direction. If unable to reach your providers, please call the [facility] CRISIS LINE AT , go to the [facility] walk-in center at [address], [address], [place], or go to the closest Emergency Room. 5. Avoid alcohol and un-prescribed drugs. 6. You have been provided with the Mental Health Advance Directives Pamphlet for your review. AFTERCARE APPOINTMENTS: * Please call your insurance company prior to your scheduled appointment to confirm your aftercare providers are covered. Take your insurance information to your appointments. WHO TO CALL AND WHEN: Medical Emergencies: For questions or emergencies related to your hospital stay, please contact the Inpatient Behavioral Health Unit at [phone]. A inspector subassembly is on-call 22/06 for the Behavioral Health Unit for emergencies At any time you feel your situation is an emergency, you may also call 911 immediately. Pending Studies at Discharge: No Stand-Alone Forms: My [facility], Smoking Cessation Medications and DC Order Prescriptions: New fluoxetine [Prozac] 40 mg capsule 40 mg PO DAILY Qty: 30 RF: 0 Continued norethindrone ac-eth estradiol [ ()] 1.5-30 mg-mcg Tablet 1 tab PO HS RF: 0 fexofenadine [Kenna Allergy] 180 mg Tablet 180 mg PO HS RF: 0 Discontinued esomeprazole magnesium [Nexium] 40 mg capsule,delayed release(DR/EC) 40 mg PO QAM PRN (Reason: Allergy Symptoms) RF: 0 fluoxetine [Prozac] 10 mg Capsule 10 mg PO DAILY RF: 0 duloxetine [Cymbalta] 30 mg Capsule,Delayed Release(Dr/Ec) 30 mg PO DAILY RF: 0 Discharge Orders: Discharge Order (Routine); Ordered 03/02/21 Ordered By: Nicole R. Good Admission Data Admit Date/Time: 02/25/21 14:09 Attending Provider: Emily Porter Admit Provider: Emily Porter Primary Care Provider: PCP,NO Other Interventions: PSY Interdisciplinary Discharge Planning Last Done: 03/01/21 10:57 Coding Level of Care Code 37490 D/C day mgmt > 30 min Diagnoses Suicidal ideations R45.851 Depression F33.2 Depression Type: major depressive disorder Major depression recurrence: recurrent Active/Remission status: currently active Major depression episode severity: severe Psychotic features: without psychotic features Obsessive-compulsive and related disorder Celiac disease K90.0 Abnormal urinalysis R82.90
[2021-03-02] MEDS ORDERED: DESTROY THIS MEDICATION ONE (13:33)
== END 2021-03-02 11:25 | disposition home or self-care (01) | DRG 885 ==
LOC: ED 10:22 → 3S 14:09